=== PATIENT | male | born 1985 | race Caucasian/White ===

== ENCOUNTER 2019-08-19 19:00 | Outpatient (CLI) | payer OTHER | END 2019-08-19 19:01 | disposition home or self-care (01) | LOC: SLEEPLAB 19:00 | PROVIDERS: ATTEND Student in an Organized Health Care Education/Training Program | DX: G47.33 Obstructive sleep apnea (adult) (pediatric) (principal); R53.83 Other fatigue; G47.00 Insomnia, unspecified; R06.83 Snoring; K21.9 Gastro-esophageal reflux disease without esophagitis; G47.10 Hypersomnia, unspecified | CPT/HCPCS: 95806 ==

== ENCOUNTER 2023-10-25 09:04 | Outpatient (CLI) | payer BC | END 2023-10-25 09:05 | disposition home or self-care (01) | LOC: SCSMRI 09:04 | PROVIDERS: ATTEND Orthopaedic Surgery | DX: M25.562 Pain in left knee (principal); S83.242A Other tear of medial meniscus, current injury, left knee, initial encounter; R60.0 Localized edema; M94.262 Chondromalacia, left knee; Z95.828 Presence of other vascular implants and grafts ==

== ENCOUNTER 2024-02-18 07:31 | Day surgery (SDC) | payer BC ==
[2024-02-13 16:19] VITALS: BMI 30.1
[2024-02-18] MEDS ORDERED: fentaNYL PF 100 MCG/2 ML SYRINGE ONE (07:35)
[2024-02-18] MEDS ORDERED: Midazolam HCl 2 mg/2 ml Vial ONE (07:35)
[2024-02-18] MEDS ORDERED: PROPOFOL 20 ML ONE ×2 (07:35→07:46)
[2024-02-18] MEDS ORDERED: Ondansetron PF 4 MG/2 ML Vial ONE (07:44)
[2024-02-18] MEDS ORDERED: Dexamethasone 4 mg/ml Vial ONE (07:44)
[2024-02-18] MEDS ORDERED: Lidocaine 2% PF 5 ML VIAL ONE (07:46)
[2024-02-18] MEDS ORDERED: EPINEPHrine 1 MG/ML VIAL ONE (07:46)
[2024-02-18] MEDS ORDERED: Bupivacaine PF 0.5% 30 ML VIAL ONE ×2 (07:46→09:36)
[2024-02-18] MEDS ORDERED: Clindamycin/D5W 900 mg/50 ml Premix Bag ONE (08:14)
[2024-02-18] MEDS ORDERED: Clindamycin/D5W 600 mg/50 ml Premix Bag ONE (08:16)
[2024-02-18] MEDS ORDERED: fentaNYL 50 mcg/mL 1 mL Vial ONE ×3 (09:40→10:32)
== END 2024-02-18 12:15 | disposition home or self-care (01) ==
LOC: SDC 07:31
PROVIDERS: ATTEND Orthopaedic Surgery
PROC: 0SBD0ZZ Excision of Left Knee Joint, Open Approach (ICD-10-PCS; principal; 2024-02-18)
PROC: 3E0T3BZ Introduction of Anesthetic Agent into Peripheral Nerves and Plexi, Percutaneous Approach (ICD-10-PCS; principal; 2024-02-18)
PROC: 0SBD4ZZ Excision of Left Knee Joint, Percutaneous Endoscopic Approach (ICD-10-PCS; 2024-02-18)
DX: M23.204 Derangement of unspecified medial meniscus due to old tear or injury, left knee (principal); M23.007 Cystic meniscus, unspecified meniscus, left knee; G47.30 Sleep apnea, unspecified; Z79.899 Other long term (current) drug therapy; Z98.890 Other specified postprocedural states; F17.200 Nicotine dependence, unspecified, uncomplicated; Z88.0 Allergy status to penicillin
CPT/HCPCS: 88304; J0171; J0665; J1100; J2001; J2250; J2405; J2704; J3010; J3490